=== PATIENT | male | born 1955 | race Caucasian/White ===

== ENCOUNTER 2019-07-11 06:41 | Emergency (ER) | payer BC ==
[~2019-07-11] VITALS: Ht 172.7 cm; Wt 77.1 kg
== END 2019-07-11 11:06 | disposition home or self-care (01) ==
LOC: ER 06:41
DX: B34.8 Other viral infections of unspecified site (principal); B96.0 Mycoplasma pneumoniae [M. pneumoniae] as the cause of diseases classified elsewhere

== ENCOUNTER 2020-08-22 11:25 | Outpatient (CLI) | payer BC | END 2020-08-22 11:57 | disposition home or self-care (01) | LOC: OFIC 805 11:25 | PROVIDERS: ATTEND Otolaryngology Otology & Neurotology | DX: H81.01 Meniere's disease, right ear (principal); H93.11 Tinnitus, right ear; H61.23 Impacted cerumen, bilateral ==

== ENCOUNTER 2022-11-10 07:57 | Outpatient (CLI) | payer OTHER | END 2022-11-10 08:05 | disposition home or self-care (01) | LOC: RAD 07:57 | DX: M99.01 Segmental and somatic dysfunction of cervical region (principal); M99.02 Segmental and somatic dysfunction of thoracic region; M99.03 Segmental and somatic dysfunction of lumbar region; M99.04 Segmental and somatic dysfunction of sacral region; M99.05 Segmental and somatic dysfunction of pelvic region ==

== ENCOUNTER 2023-06-29 07:06 | Outpatient (CLI) | payer OTHER | END 2023-06-29 07:10 | disposition home or self-care (01) | LOC: SONOGRAMA 07:06 | PROVIDERS: ATTEND Urology | DX: R97.20 Elevated prostate specific antigen [PSA] (principal); R31.1 Benign essential microscopic hematuria; R33.9 Retention of urine, unspecified ==